=== PATIENT | male | born 1985 | race African-American/Black ===

== ENCOUNTER 2021-04-18 02:19 | Emergency (ER) | payer OTHER ==
[2021-04-18 02:52] VITALS: BMI 26.4
[2021-04-18] MEDS ORDERED: ACETAMINOPHEN 1000 MG/100 ML VIAL (NON FORMULARY) IVPB ONE (02:59)
[2021-04-18] MEDS ORDERED: SODIUM CHLORIDE 0.9% 500 ML INFUS.BAG IV ONE (02:59)
[2021-04-18] MEDS ORDERED: ACETAMINOPHEN INJECTION 100 ML IVPB ONE (03:13)
[2021-04-18 04:17] LABS: BASO % 0.5 % (0-2.0); EOS % 0.1 % (0-4.5); HEMATOCRIT 41.5 % (35.4-49); HEMOGLOBIN 13.7 GM/dL (11.7-16.9); LYMPH % 21.6 % (8-40); MCH 27.7 pg (25.7-33.7); MCHC 33.1 g/dl (32.0-35.9); MEAN CELL VOLUME 83.7 fl (80-96); MEAN PLT VOLUME 8.7 fl (7.5-11.1); MONO % 14.6 % (3.8-10.2); NEUT % 63.2 % (42.8-82.8); PLATELET COUNT 191 10^3/uL (134-434); RBC 4.96 M/mm3 (4.00-5.60); RDW 13.5 % (11.9-15.9); WHITE BLOOD COUNT 5.7 K/mm3 (4.0-10.0)
[2021-04-18 04:29] LABS: INR 1.1 (0.83-1.09); PROTHROMBIN TIME (PATIENT) 13.5 SEC (9.7-13.0)
[2021-04-18 04:32] LABS: ACTIVATED PTT 26.1 SECONDS (25.2-36.5)
[2021-04-18 04:37] LABS: CHLORIDE 104 mmol/L (98-107); SODIUM 139 mmol/L (136-145)
[2021-04-18 04:39] LABS: CALCIUM 8.2 mg/dL (8.5-10.1)
[2021-04-18 04:40] LABS: ALBUMIN 3.5 g/dl (3.4-5.0); ANION GAP 10 MMOL/L (8-16); BLOOD UREA NITROGEN 9.8 mg/dL (7-18); CO2 25 mmol/L (21-32); GLUCOSE,RANDOM 113 mg/dL (74-106); MAGNESIUM 1.7 mg/dL (1.8-2.4)
[2021-04-18 04:43] LABS: CREATININE 1.4 mg/dL (0.55-1.3); PHOSPHOROUS 4.7 mg/dL (2.5-4.9); SGOT/AST 17 U/L (15-37); SGPT/ALT 17 U/L (13-61)
[2021-04-18 04:44] LABS: BILIRUBIN,TOTAL 0.3 mg/dL (0.2-1); TOT PROT 7.2 g/dl (6.4-8.2)
[2021-04-18 04:46] LABS: ALK PHOS 56 U/L (45-117)
[2021-04-18 05:55] VITALS: TEMP 98.8
[2021-04-18] MEDS ORDERED: CASIRIVIMAB (REGN10933) 600 MG, IMDEVIMAB (REGN10987) 600 MG in SODIUM CHLORIDE 100 ML IVPB ONE (08:02)
[2021-04-18 11:17] VITALS: BP 119/81; PULSE 63
== END 2021-04-18 11:37 | disposition home or self-care (01) ==
LOC: JER 02:19
PROC: 3E0333Z Introduction of Anti-inflammatory into Peripheral Vein, Percutaneous Approach (ICD-10-PCS; principal; 2021-04-18)
PROC: 3E03329 Introduction of Other Anti-infective into Peripheral Vein, Percutaneous Approach (ICD-10-PCS; 2021-04-18)
DX: U07.1 COVID-19 (principal)
CPT/HCPCS: 36415; 71275-TC; 80053; 82550; 82553; 83735; 84100; 84439; 84443; 84484; 85025; 85379; 85610; 85730; 93005; 93010; 99285-25; C9803; J0131; M0243; Q0243; U0003; U0005